=== PATIENT | female | born 1960 | race Two or more races ===

== ENCOUNTER 2019-04-11 06:07 | Day surgery (SDC) | payer OTHER ==
[~2019-04-11 06:07] MED LIST: CLONAZEPAM1 MG PO; COZAAR50 MG PO; FENOFIBRATE145 MG PO; FOLIC ACID1 MG PO; OMEGA-31000 MG PO; OPTIMAL D350000 UNIT PO
== END 2019-04-11 15:45 | disposition home or self-care (01) ==
LOC: CIR.AMB 06:07
DX: D12.9 Benign neoplasm of anus and anal canal (principal)